=== PATIENT | female | born 1990 | race American Indian/Alaskan Native ===

== ENCOUNTER → 2024-12-18 08:50 | Outpatient (BNVA) | payer BC, MEDICAID, SELFPAY | PROVIDERS: PCP Nurse Practitioner Family; Visit Provider Orthopaedic Surgery | DX: M25.511 Pain in right shoulder (principal); G89.29 Other chronic pain | CPT/HCPCS: 73030 ==

== ENCOUNTER 2025-01-05 08:52 | Outpatient (CLI) | payer BC, MEDICAID, SELFPAY ==
--- NOTE | 2025-01-05 09:30 | MR_ITS ---
WS: [id number] MRI RIGHT SHOULDER HISTORY: rt shoulder pain COMPARISON: Radiograph 12/18/2024 TECHNIQUE: Multiplanar sequences of the shoulder joint are submitted. At the level of the coracoid process is flattening of the posterior lateral humeral head with a small amount of intermediate signal. There is a tiny cyst in the humeral head depression. Abnormal appearance of the anterior inferior labrum. A normal labrum is not identified. There is intermediate signal with loss of the normal triangular appearance of the labrum. Labrum is very small caliber. There is mild elevation scapular periosteum. No bone fragment identified. Increased intermediate signal with thickening of the distal supraspinatus tendon consistent with marked tendinopathy. No tendon retraction. No muscle atrophy or edema. No full-thickness rotator cuff tear or retraction. Subscapularis tendon appears normal. Mild AC joint arthritis. Osteophytes extend and contact the supraspinatus muscle. No bursitis. Mild subacromial impingement. Normal biceps tendon. MR/MR shoulder RT wo con* [id number] IMPRESSION: 1. Findings consistent with a mild Hill-Sachs deformity. Associated Bankart le reina with mild tearing of the anterior scapular periosteum. No glenoid fracture is seen. 2. Marked tendinopathy in the distal supraspinatus tendon. 3. Mild subacromial impingement.
== END 2025-01-05 08:53 | disposition home or self-care (01) ==
PROVIDERS: PCP Nurse Practitioner Family; Visit Provider Orthopaedic Surgery
DX: M75.41 Impingement syndrome of right shoulder (principal); R93.7 Abnormal findings on diagnostic imaging of other parts of musculoskeletal system; S43.431A Superior glenoid labrum lesion of right shoulder, initial encounter; S42.141A Displaced fracture of glenoid cavity of scapula, right shoulder, initial encounter for closed fracture; X58.XXXA Exposure to other specified factors, initial encounter; M67.813 Other specified disorders of tendon, right shoulder; M19.011 Primary osteoarthritis, right shoulder; M25.711 Osteophyte, right shoulder
CPT/HCPCS: 73221

== ENCOUNTER → 2025-01-07 10:18 | Outpatient (BNVA) | payer BC, MEDICAID, SELFPAY | PROVIDERS: PCP Nurse Practitioner Family; Visit Provider Orthopaedic Surgery | DX: Z01.818 Encounter for other preprocedural examination (principal) | CPT/HCPCS: 36415; 80053; 81003; 85025; 87086 ==

== ENCOUNTER 2025-02-02 05:38 | Day surgery (SDC) | payer MEDICAID, SELFPAY ==
[2025-02-02] VITALS (10 sets, daily range): BP systolic 110–141; BP diastolic 56–93; PULSE 59–69; RESP 16–97; TEMP 36.1–36.6; O2SAT 92–100; BMI 37.5
[2025-02-02] MEDS: sodium chloride 0.9% 1,000 ML 30 ML IV (06:10)
--- NOTE | 2025-02-02 06:15 | ANES.PREANE2 ---
Pre-Anesthetic Assessment Height/Weight: Height 5 ft 7 in Weight 240 lb Resp BP Pulse Ox O2 Del Method 97 H 141/93 99 Room Air 02/02/25 05:58 02/02/25 05:58 02/02/25 05:58 02/02/25 05:58 Preop Diagnosis: Right shoulder pain Operation Date: 02/02/25 07:00 Proposed Procedures p Shoulder Arthroscopy(Right) - Jasvir Adamson MD s Anterior Capsulorrhaphy decompression(Right) - Jasvir Adamson MD Was Beta Rylee taken within 24 hours: N/A Was Clonidine taken within 24 hours: N/A Last intake: Intake Last Liquid Date 02/01/25 Last Liquid Time 21:00 Last Solid Date 02/01/25 Last Solid Time 19:30 Social Tobacco and No alcohol Exam alert, oriented x 3, clear to auscultation bilaterally and regular rate & rhythm Airway Submandibular: within normal limits Cervical ROM: within normal limits Mallampati: Class II Comments: Comments: Multiple missing teeth in the front, denies any loose Anesthetic Plan Anesthesia: General and Regional (specify below) Other: No prior issues with anesthesia NPO since yesterday evening Current everyday smoker On chronic Adderall Patient takes tirzepatide for weight loss. Last taken Labs reviewed from January 07 and acceptable for procedure today METs greater than 4 Plan for general anesthesia with preop nerve block Medications/Allergies Home Medications ?Medication ?Instructions ?Recorded ?Confirmed ?Last Taken ?Type dextroamphetamine-amphetamine ER 30 mg PO DAILY 01/07/25 02/01/25 02/01/25 History 30 mg 24hr capsule,extend release (Adderall XR) fluoxetine 10 mg capsule 10 mg PO DAILY 01/07/25 02/01/25 01/30/25 History olanzapine 2.5 mg tablet 2.5 mg PO DAILY 01/07/25 02/01/25 01/30/25 History tirzepatide (weight loss) 5 mg/0.5 5 mg SUBCUT .WEEKLY 01/29/25 02/01/25 01/27/25 History mL subcutaneous pen injector (Zepbound) Allergies Allergy/AdvReac Type Severity Reaction Status Date / Time acetaminophen Allergy Intermediate stomach Verified 02/02/25 05:55 pain Latex, Natural Rubber Allergy Intermediate rash Verified 02/02/25 05:55 Current Medications Generic Name Dose Route Start Last Admin Trade Name Freq PRN Reason Stop Dose Admin Sodium Chloride 1,000 mls @ 30 mls/hr 02/02/25 06:00 02/02/25 06:10 Sodium Chloride 0.9% IV 02/03/25 05:59 30 mls/hr .Q24H MICHELE Administration PFSH Anesthesia Social History Smoking and tobacco/nicotine status: current every day tobacco/nicotine user
--- NOTE | 2025-02-02 06:40 | ANES.PROC ---
Anesthesia Procedures Procedure/Date: 02/02/25 Nerve Block ^: Nerve Block 1: Main Anesthesia: other (100 mcg fentanyl and 2 mg Versed) Time Out Performed: Yes Consent: requested by attending/covering physician and from patient Nerve block location: interscalene Anesthesia monitors applied: pulse oximetry, EKG, BP cuff and oxygen Nerve block position: supine Anesthetic Used: bupivacaine 0.5% Amount of anesthesia used (mL): 30 Ultrasound used to: recognize landmarks Nerve Stimulator Used?: Yes Interscalene/Femoral BLK: other needle (pjunk 4inch) Injection: neg aspiration of heme Patient Tolerated Procedure: well Complications: none Additional Comments: decadron 4mg added to block
--- NOTE | 2025-02-02 06:50 | W.PM.OPSUD ---
Surgery/Procedure H&P Update DATE OF PROCEDURE: February 02, 2025 DATE H&P PERFORMED: 01/29/25 H&P UPDATE INFORMATION: I have reviewed H&P completed within last 30 days, I have examined patient prior to procedure, No changes to prior documentation and H&P to be scanned into chart PREOP DIAGNOSIS: Right shoulder pain PLANNED PROCEDURE: Operation Date: 02/02/25 07:00 Proposed Procedures p Shoulder Arthroscopy(Right) - Jasvir Adamson MD s Anterior Capsulorrhaphy decompression(Right) - Jasvir Adamson MD
[2025-02-02] MEDS: ceFAZolin 2,000 mg SDV 2000 MG IVP (06:58)
--- NOTE | 2025-02-02 08:41 | PM.OP ---
Operative Report Date of procedure: February 02, 2025 Surgeon: Jasvir Adamson MD Procedure: Preop diagnosis: Unstable right shoulder possible labral tear with acromial impingement Postop diagnosis: Redundant anterior capsule right shoulder, labral tear, impingement Procedure: Diagnostic right shoulder arthroscopy with labral debridement anterior capsulorrhaphy, acromioplasty Surgeon: Jasvir Adamson MD Overhead Door Technician: MARIA DE JESUS Ravi Renita's assistance was necessary during the procedure for assistance whilst suturing arthroscopically all structures. Her assistance was also needed for positioning, wound closure, dressing placement, transported patient back to PACU Anesthesia: General With preoperative skin block EBL: None Indications: Edgar is a 34Y female was seen in the orthopedic clinics for evaluation of right shoulder pain. She is previously had a dislocation of her shoulder and has continued to have pain problems and difficulties with this. Subsequent MRI after workup demonstrated possible labral tearing anteriorly as well as some redundant anterior soft tissue structures. There is questionable changes in the supraspinatus tendon as well as the other. That there is an acromial impingement going on. Therefore at this time after the patient failed all conservative measures she was offered a diagnostic shoulder arthroscopy with all indicated procedures which would include a capsulorrhaphy, labral repair, acromioplasty and possible rotator cuff repair. All risk benefits treatment alternatives were discussed with her and she is agreeable to this at this time. Procedure: After obtaining written consent patient had scalene block administered in preop holding area. Patient then taken to the operating room placed the op table supine position general anesthetic administered. Once good anesthesia was achieved patient placed up in a beachchair position padded appropriately and secured to the bed. Right upper extremity and shoulder were prepped and draped usual fashion. After surgical timeout standard posterior portals made #11 blade camera cannula was placed into the glenohumeral joint from this incision. Anterior working portal was also made just inferior to the acromion and disposable cannula placed. Evaluation of the shoulder joint itself demonstrated fraying of the insertion of the labrum just below the biceps tendon though not a complete pull away from the glenoid. There is appear to be redundant tissue in humeral head was easily pushed forward almost out of the glenoid on exam arthroscopically. There is fraying of the superior labrum this too was debrided with mechanical shaver anterior labrum is also debrided mechanical shaver. Evaluation of the biceps tendon was in good repair as well as the hiatus of the biceps tendon. Supraspinatus and infraspinatus tendon demonstrated no fraying or tearing at its insertion into the humeral head. At this point using juggernaut anchor was suture anchors capsule was sewn back down to the glenoid after had been prepared. Suture going through the superior portion of the anterior inferior glenohumeral ligament to also tighten this up back to the glenoid. Once this was achieved camera is then repositioned in the subacromial space. Using a mechanical shaver as well as a thermal probe bursa was removed from the area to identify the acromion. There was a moderate acromial spur and this was removed with a arthroscopic barrel bur. Once actually decompressed shoulders washed coachman sterile irrigation. All cannulas removed. Wounds are closed with 3-0 nylon interrupted sutures. Dressed with Xeroform gauze dressing, sterile gauze dressing ABDs and adhesive tape. Patient placed abduction pillow and sling awakened and transferred recovery in stable condition
--- NOTE | 2025-02-02 10:20 | ANE.PACU2 ---
Inpatient post-anesthesia follow up: Airway intact: Yes Vital signs: Temperature 97 F Pulse Rate 68 Respiratory Rate 18 Blood Pressure 138/79 Pulse Oximetry 99 Oxygen Delivery Me thod Room Air Oxygen Flow Rate 8 Fraction of Inspir ed Oxygen Hydration adequate: Yes Nausea and vomiting: No Pain level: 1 Mental status: Baseline
== END 2025-02-02 10:10 | disposition home or self-care (01) ==
PROVIDERS: PCP Nurse Practitioner Family; Visit Provider Orthopaedic Surgery
PROC: (CPT 29805; principal; 2025-02-02 07:00)
DX: S43.431A Superior glenoid labrum lesion of right shoulder, initial encounter (principal); M75.41 Impingement syndrome of right shoulder; F17.210 Nicotine dependence, cigarettes, uncomplicated; Z79.899 Other long term (current) drug therapy; Z88.8 Allergy status to other drugs, medicaments and biological substances; Z91.040 Latex allergy status; X58.XXXA Exposure to other specified factors, initial encounter
CPT/HCPCS: 29806; 29826; C1713; J0690; J1100; J2405; J2704; J3490; J7030; J9999

== ENCOUNTER → 2025-02-23 11:11 | Outpatient (BNVA) | payer MEDICAID, SELFPAY | PROVIDERS: PCP Nurse Practitioner Family; Visit Provider Orthopaedic Surgery | DX: Z98.890 Other specified postprocedural states (principal) | CPT/HCPCS: 99024 ==